=== PATIENT | male | born 1990 | race African-American/Black ===

== ENCOUNTER → 2018-02-08 | Emergency (ER) | payer SELFPAY ==
[~2018-02-08] VITALS: Ht 175.3 cm; Wt 68.2 kg
[~2018-02-08] MED LIST: ONDANSETRON HCL 4 MG TABLET PO ONE
[2018-02-08 21:18] VITALS: BP 110/70
== END | disposition home or self-care (01) ==
LOC: EMS 19:22 → EDSEX 19:22
DX: R11.2 Nausea with vomiting, unspecified (principal); F17.210 Nicotine dependence, cigarettes, uncomplicated
CPT/HCPCS: 99283; Q0162

== ENCOUNTER 2018-04-09 17:14 | Emergency (ER) | payer SELFPAY ==
[~2018-04-09] VITALS: Ht 175.3 cm; Wt 68.2 kg
[2018-04-09] MEDS ORDERED: IBUPROFEN 800 MG TABLET PO ONE (19:30)
[2018-04-09 20:55] VITALS: BP 133/71
== END 2018-04-09 21:02 | disposition home or self-care (01) ==
LOC: EMS 17:15
DX: S60.221A Contusion of right hand, initial encounter (principal); F17.210 Nicotine dependence, cigarettes, uncomplicated; F12.10 Cannabis abuse, uncomplicated; V00.131A Fall from skateboard, initial encounter; Y93.51 Activity, roller skating (inline) and skateboarding; Y92.89 Other specified places as the place of occurrence of the external cause; Y99.8 Other external cause status
CPT/HCPCS: 99284

== ENCOUNTER 2018-12-27 15:52 | Emergency (ER) | payer SELFPAY ==
[~2018-12-27] VITALS: Ht 175.3 cm; Wt 68.2 kg
[2018-12-27 16:12] VITALS: BP 116/76
== END 2018-12-27 19:00 | disposition left against medical advice (07) ==
LOC: EMS 15:52
DX: M54.5 Low back pain (principal); Z53.21 Procedure and treatment not carried out due to patient leaving prior to being seen by health care provider